=== PATIENT | female | born 1990 | race American Indian/Alaskan Native ===

== ENCOUNTER 2019-05-18 08:56 | Emergency (ER) | payer MEDICAID ==
[2019-05-18 09:12] VITALS: BP 140/82
[2019-05-18] MEDS ORDERED: ACETAMINOPHEN 325 MG TAB PO ONE (11:49)
[2019-05-18] MEDS ORDERED: predniSONE 20 MG TAB PO ONE (11:49)
[2019-05-18] MEDS ORDERED: guaiFENesin 100 MG/5 ML ORAL LIQD PO ONE (11:49)
--- NOTE | 2019-05-18 11:50 | Emergency Department Report ---
Minor Respiratory - HPI Chief Complaint: Upper Respiratory Infection Stated Complaint: BODYACHES/FLU SYM Time Seen by Provider: 05/18/19 11:40 Minor Respiratory: Yes Rhinorrhea, Yes Sore Throat, Yes Able to Tolerate Fluids, Yes Cough, No Ear Pain, No Sick Contacts, No Hemoptysis, No Chest Pain, No Shortness of Breath, No Fever Other History: This is a 29-year-old female who presents to the ED complaining of upper respiratory symptoms such as runny nose, fever, body aches and coughing for the past 2 weeks. Patient states she is taking medication with no relief. Patient states that symptoms are just not going away. Patient states intermittent yellow productive coughing. She denies fever/chills/nausea vomiting/abdominal pain/chest pain/shortness of breath ED Review of Systems ROS: Stated complaint: BODYACHES/FLU SYM Other details as noted in HPI Comment: All other systems reviewed and negative ED Past Medical Hx - Past Medical History Hx Hypertension: No Hx Congestive Heart Failure: No Hx Diabetes: No Hx Deep Vein Thrombosis: No Hx Renal Disease: No Hx Sickle Cell Disease: No Hx Seizures: No Hx Asthma: No Hx COPD: No Hx HIV: No - Surgical History Past Surgical History?: No - Social History Smoking Status: Current Every Day Smoker Substance Use Type: None - Medications Home Medications: Home Medications Medication Instructions Recorded Confirmed Last Taken Type Azithromycin [Zithromax] 250 mg PO DAILY #6 tablet 05/18/19 Unknown Rx Benzonatate [Tessalon Perles] 100 mg PO Q8HR #20 capsule 05/18/19 Unknown Rx Fluticasone [Flonase] 1 spray NS QDAY #1 bottle 05/18/19 Unknown Rx Ibuprofen [Motrin] 800 mg PO Q8HR #30 tablet 05/18/19 Unknown Rx Minor Respiratory Exam - Exam General: Vital signs noted. No distress. Alert and acting appropriately. HEENT: Yes Moist Mucous Membranes, No Pharyngeal Erythema, No Pharyngeal Exudates, No Rhinorrhea, No Conjuctival Injection, No Frontal Tenderness, No Maxillary Tenderness Ear: Neither TM Bulge, Neither TM Erythema, Neither EAC Pain, Neither EAC Discharge Neck: Yes Supple, No Adenopathy Lungs: Yes Good Air Exchange, No Wheezes, No Ronchi, No Stridor, No Cough, No Labored Respirations, No Retractions, No Use of Accessory Muscles, No Other Abnormal Lung Sounds Heart: Yes Regular, No Murmur Abdomen: Yes Normal Bowel Sounds, No Tenderness, No Peritoneal Signs Skin: No Rash, No Edema Neurologic: Alert and oriented, no deficits. Musculoskeletal: Unremarkable. ED Course Vital Signs 05/18/19 09:08 Temperature 99.3 F Pulse Rate 100 H Respiratory 20 Rate Blood Pressure 140/82 O2 Sat by Pulse 95 Oximetry ED Medical Decision Making - Radiology Data Radiology results: report reviewed, image reviewed INDICATION / CLINICAL INFORMATION: cough,fever. COMPARISON: 2 views of the chest from 08/23/2012 FINDINGS: SUPPORT DEVICES: None. HEART / MEDIASTINUM: No significant abnormality. LUNGS / PLEURA: No significant pulmonary or pleural abnormality. No pneumothorax. ADDITIONAL FINDINGS: No significant additional findings. IMPRESSION: 1. No acute abnormality of the chest. Signer Name: Jorge Luis Rader MD Signed: 05/18/2019 12:20 PM Workstation Name: [id number] Transcribed By: MIGEL Dictated By: Jorge Luis Rader MD Electronically Authenticated By: Jorge Luis Rader MD Signed Date/Time: 05/18/19 1220 - Medical Decision Making 29-year-old female presents with upper respiratory infection. There was no fever during the ED stay. Chest x-ray obtained. X-ray shows no acute findings. Patient does look a bit ill and since symptoms is been going on for 2 weeks with no relief will give prophylaxis antibiotics. Discussed with patient symptomatic relief with [id number] medications. Discussed continue Tylenol and Motrin as needed for fever and pain. Discussed increase fluids and diet intake. Discussed rest much needed. Discussed daily vitamin C for immune booster. Discussed follow-up with primary care physician in 3-5 days. Patient verbally states she understands and will comply the following instructions and follow-up Vital signs stable. Patient is in no acute distress Critical care attestation.: If time is entered above; I have spent that time in minutes in the direct care of this critically ill patient, excluding procedure time. ED Disposition Clinical Impression: Upper respiratory infection Disposition: DC-01 TO HOME OR SELFCARE Is pt being admited?: No Does the pt Need Aspirin: No Condition: Stable Instructions: Upper Respiratory Infection (ED) Additional Instructions: Make sure to follow up with the primary care physician as discussed. Take all your medications as you've been prescribed. If you have any worsening symptoms or develop new symptoms please return to ED immediately. Prescriptions: Fluticasone [Flonase] 1 spray NS QDAY #1 bottle Ibuprofen [Motrin] 800 mg PO Q8HR #30 tablet Benzonatate [Tessalon Perles] 100 mg PO Q8HR #20 capsule Azithromycin [Zithromax] 250 mg PO DAILY #6 tablet Referrals: RHODA FISH MD [Primary Care Provider] - 3-5 Days [facility] [Outside] - 3-5 Days [facility] [Outside] - 3-5 Days Forms: Accompanied Note, Work/School Release Form(ED) Time of Disposition: 13:12
--- NOTE | 2019-05-18 12:24 | XRay Report ---
CHEST 2 VIEWS INDICATION / CLINICAL INFORMATION: cough,fever. COMPARISON: 2 views of the chest from 08/23/2012 FINDINGS: SUPPORT DEVICES: None. HEART / MEDIASTINUM: No significant abnormality. LUNGS / PLEURA: No significant pulmonary or pleural abnormality. No pneumothorax. ADDITIONAL FINDINGS: No significant additional findings. IMPRESSION: 1. No acute abnormality of the chest. Signer Name: Jorge Luis Rader MD Signed: 05/18/2019 12:20 PM Workstation Name: [id number]
== END 2019-05-18 14:04 | disposition home or self-care (01) ==
LOC: ED 08:56
DX: J06.9 Acute upper respiratory infection, unspecified (principal); F17.200 Nicotine dependence, unspecified, uncomplicated; Z79.1 Long term (current) use of non-steroidal anti-inflammatories (NSAID); Z79.899 Other long term (current) drug therapy
CPT/HCPCS: 71046; 99283; J7512